=== PATIENT | female | born 1995 | race Caucasian/White ===

== ENCOUNTER 2018-02-11 21:29 | Emergency (ER) | payer BC, OTHER ==
[2018-02-11] MEDS ORDERED: FAMOTIDINE 20 MG TAB PO ONE (21:39)
[2018-02-11] MEDS ORDERED: predniSONE 20 MG TAB PO ONE (21:39)
[2018-02-11] MEDS ORDERED: diphenhydrAMINE 25 MG CAP PO ONE (21:39)
[2018-02-11] MEDS ORDERED: NS 1,000 ML IV ONE (21:39)
[2018-02-11] MEDS ORDERED: EPINEPHrine 1 MG/ML INJ IM ONE (21:39)
[2018-02-11] MEDS ORDERED: RANITIDINE 50 MG/2 ML VIAL IVP ONE (21:45)
[2018-02-11] MEDS ORDERED: IPRATROPIUM/ALBUTEROL 3 ML DEYVIAL IH ONE (21:56)
[2018-02-11 23:12] VITALS: BP 127/78
--- NOTE | 2018-02-11 23:16 | EDPHY ---
H & P Stated Complaint: allergic reaction Time Seen by Provider: 02/11/18 21:36 HPI/ROS: Chief complaint: Allergic reaction History of present illness: This is a 22-year-old female with history of anaphylactic reaction who presents to the emergency department concerned she is having another. She reports the sudden onset a red, itchy rash to her whole body. Her throat feels like it is swelling. She is having trouble breathing. She had a similar episode in September. She has been seen by primary care doctor and consumer credit counselor without any precipitating factors noted at this time. She denies other associated signs or symptoms. She does carry to epinephrine pens with her but has not administered them at this time. However, she has taken 25 mg of Benadryl orally. Review of systems: A 10 point review of systems was obtained and other than described above was negative - Personal History LMP (Females 10-55): Extended Cycle BCP/Inj Current Tetanus/Diphtheria Vaccine: Yes Current Tetanus Diphtheria and Acellular Pertussis (TDAP): Yes - Medical/Surgical History Hx Asthma: No Hx Chronic Respiratory Disease: No Hx Diabetes: No Hx Cardiac Disease: No Hx Renal Disease: No Hx Cirrhosis: No Hx Alcoholism: No Hx HIV/AIDS: No Hx Splenectomy or Spleen Trauma: No Other PMH: denies - Social History Smoking Status: Never smoked - Physical Exam Exam: General Appearance: Alert, nontoxic. Eyes: Pupils equal and round no pallor or injection. ENT, Mouth: Mucous membranes moist. No angioedema. Respiratory: There are no retractions, lungs are clear to auscultation. Cardiovascular: Regular rate and rhythm. Gastrointestinal: Abdomen is soft and non tender, no masses, bowel sounds normal. Neurological: Alert and oriented x4. Strength and sensation intact and symmetrical. Skin: Diffuse erythematous rash to the body. Musculoskeletal: Neck is supple non tender. Extremities are symmetrical, full range of motion. Psychiatric: Patient is oriented X 3, there is no agitation. Constitutional: Initial Vital Signs Temperature (C) 37.3 C 02/11/18 21:29 Heart Rate 122 H 02/11/18 21:29 Respiratory Rate 18 02/11/18 21:29 Blood Pressure 134/95 H 02/11/18 21:29 O2 Sat (%) 94 02/11/18 21:29 O2 Delivery Mode Room Air Allergies/Adverse Reactions: cefazolin Allergy (Verified 02/11/18 21:33) Penicillins Allergy (Verified 02/11/18 21:32) Home Medications: Medication Instructions Recorded Birthcontrol 02/11/18 predniSONE 40 mg PO DAILY 3 Days tab 02/11/18 Medical Decision Making ED Course/Re-evaluation: Patient is discussed with my secondary supervising physician Dr. Itz Johnson. Patient presents concerned she is having an anaphylactic reaction. She does have a diffuse rash. Airway is patent on my evaluation. She was given epinephrine 0.3 mg IM. She was given prednisone 60 mg orally. She was given normal saline IV, 25 mg of Benadryl IV, Zantac 50 mg IV and a nebulizer. She is observed for 2 hr with resolution of symptoms. She states she is feeling well and would like to be discharged. She will be discharged home on medications. She has 2 unexpired epinephrine pens on herself. Home care is discussed. She is asked to follow up with a primary care doctor for recheck. Return precautions are given. Patient voiced understanding and agreement with plan. Differential Diagnosis: Included but not limited to anaphylaxis, allergic reaction, contact dermatitis - Data Points Medications Given: Discontinued Medications Albuterol/Ipratropium (Duoneb) 3 ml IH EDNOW ONE Stop: 02/11/18 21:57 Last Admin: 02/11/18 22:15 Dose: 3 ml Diphenhydramine HCl (Benadryl) 25 mg PO EDNOW ONE Stop: 02/11/18 21:40 Last Admin: 02/11/18 22:22 Dose: Not Given Diphenhydramine HCl (Benadryl Injection) 25 mg IVP EDNOW ONE Stop: 02/11/18 21:46 Last Admin: 02/11/18 21:55 Dose: 25 mg Epinephrine HCl (Epinephrine) 0.3 mg IM EDNOW ONE Stop: 02/11/18 21:40 Last Admin: 02/11/18 21:40 Dose: 0.3 mg Famotidine (Pepcid) 40 mg PO EDNOW ONE Stop: 02/11/18 21:40 Last Admin: 02/11/18 22:22 Dose: Not Given Sodium Chloride (Ns) 1,000 mls @ 0 mls/hr IV ONCE ONE; Wide Open PRN Reason: Protocol Stop: 02/11/18 21:40 Last Admin: 02/11/18 21:40 Dose: 1,000 mls Prednisone (Prednisone) 60 mg PO EDNOW ONE Stop: 02/11/18 21:40 Last Admin: 02/11/18 21:40 Dose: 60 mg Ranitidine HCl (Zantac) 50 mg IVP EDNOW ONE Stop: 02/11/18 21:46 Last Admin: 02/11/18 21:53 Dose: 50 mg Departure - Departure Disposition: Home, Routine, Self-Care Clinical Impression: Allergic reaction Qualifiers: Encounter type: initial encounter Qualified Code(s): T78.40XA - Allergy, unspecified, initial encounter Condition: Good Instructions: Anaphylaxis (ED) Additional Instructions: Follow-up with a primary care doctor next week for recheck In terms of treatment see the following: -take prednisone daily until finished -take Benadryl 25 mg every 6 hr for the next 3-4 days -take Zantac 150 mg every 12 hr for the next 3-4 days Care you're epinephrine pens with you at all times, if symptoms return use the epinephrine pens and seek immediate medical care Referrals: NONE *PRIMARY CARE P,. [Primary Care Provider] - As per Instructions Komal Pitt MD [[facility] [place]] - As per Instructions Prescriptions: predniSONE 40 mg PO DAILY 3 Days tab
== END 2018-02-11 23:34 | disposition home or self-care (01) ==
DX: T78.2XXA Anaphylactic shock, unspecified, initial encounter (principal); L23.9 Allergic contact dermatitis, unspecified cause; E86.9 Volume depletion, unspecified
CPT/HCPCS: 96374; J0171; J1200; J2780; J7512

== ENCOUNTER 2018-04-01 17:05 | Emergency (ER) | payer BC, OTHER ==
[2018-04-01] MEDS ORDERED: methylPREDNISolone SOD SUCC 125 MG/2 ML VIAL IVP ONE (17:27)
[2018-04-01] MEDS ORDERED: EPINEPHrine 1 MG/ML INJ IM ONE (17:27)
[2018-04-01] MEDS ORDERED: NS 1,000 ML IV ONE (17:27)
--- NOTE | 2018-04-01 17:33 | EDPHY ---
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 She took Benadryl and ranitidine which she tolerated well and notes her symptoms continue however they have decreased slightly. No history of intubation. 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 Appears nontoxic appears anxious 2) HEAD: Normocephalic, atraumatic 3) HEENT: Pupils equal, round, reactive to light bilaterally. Sclera anicteric. Nasopharynx, oropharynx, clear, no lesions. Moist Mucous membranes. No tonsillar glossal enlargement Ears bilaterally with normal tympanic membranes. 4) NECK: Full range of motion, no meningeal signs. 5) LUNGS: Clear auscultation bilaterally, no wheezes, no rhonchi, no retractions. 6) HEART: Regular rate and rhythm, no murmur, no heave, no gallop. 7) ABDOMEN: No guarding, no rebound, no focal tenderness, negative McBurney's, negative Alston's, negative Rovsing's, negative peritoneal sign, 8) MUSCULOSKELETAL: Moving all extremities, no focal areas of tenderness, no obvious trauma. No peripheral edema or discoloration. 9) BACK: No CVA tenderness, no midline vertebral tenderness, no fluctuance, no step-off, no obvious trauma, no visual or palpable abnormality. 10) SKIN: Urticaria 11) Psychiatric: Patient is oriented X 3, there is no agitation. DIFFERENTIAL DIAGNOSIS: In no particular order including but not limited to anaphylaxis, urticaria, accidental exposure to allergens - Personal History LMP (Females 10-55): Extended Cycle BCP/Inj Current Tetanus Diphtheria and Acellular Pertussis (TDAP): Yes - Medical/Surgical History Hx Asthma: No Hx Chronic Respiratory Disease: No Hx Diabetes: No Hx Cardiac Disease: No Hx Renal Disease: No Hx Cirrhosis: No Hx Alcoholism: No Hx HIV/AIDS: No Hx Splenectomy or Spleen Trauma: No Other PMH: anaphlaxis - Social History Smoking Status: Never smoked Constitutional: Initial Vital Signs Temperature (C) 37.4 C 04/01/18 17:10 Heart Rate 99 04/01/18 17:10 Respiratory Rate 20 04/01/18 17:10 Blood Pressure 120/87 H 04/01/18 17:10 O2 Sat (%) 96 04/01/18 17:10 O2 Delivery Mode Room Air Allergies/Adverse Reactions: cefazolin Allergy (Verified 04/01/18 17:09) Penicillins Allergy (Verified 04/01/18 17:09) Home Medications: Medication Instructions Recorded Birthcontrol 02/11/18 Benadryl 04/01/18 EPINEPHrine [Epipen 0.3 MG] 0.3 mg IM ONCE #2 syr 04/01/18 Zantac 04/01/18 Medical Decision Making ED Course/Re-evaluation: 5:30 p.m.: Patient has already consumed H1 H2 blockers. Will administer further Solu-Medrol and epinephrine and re-evaluate. Explained the indications risks benefits of epinephrine and I think the benefits outweigh the risks. Patient consents. I believe her to have decision-making capacity. Care of patient under supervision of secondary supervising physician Dr Siegel with whom I discussed case. 5:55 p.m.: Re-evaluation after epinephrine and Solu-Medrol. Feeling "much better". She appears more comfortable. Will continue to observe the patient for period of time. We discussed recommendations and usage for her EpiPen the future which she has sufficient supply of. 7:30 p.m.: Re-evaluation feeling "totally better", would like to be discharged. Given my usual and customary allergic reaction precautions and instructions - Data Points Medications Given: Discontinued Medications Epinephrine HCl (Epinephrine) 0.3 mg IM EDNOW ONE Stop: 04/01/18 17:28 Last Admin: 04/01/18 17:29 Dose: 0.3 mg Sodium Chloride (Ns) 1,000 mls @ 0 mls/hr IV ONCE ONE; Wide Open PRN Reason: Protocol Stop: 04/01/18 17:28 Last Admin: 04/01/18 17:38 Dose: 1,000 mls Methylprednisolone Sodium Succinate (Solu-Medrol) 125 mg IVP EDNOW ONE Stop: 04/01/18 17:28 Last Admin: 04/01/18 17:31 Dose: 125 mg Departure - Departure Disposition: Home, Routine, Self-Care Clinical Impression: Allergic reaction Qualifiers: Encounter type: initial encounter Qualified Code(s): T78.40XA - Allergy, unspecified, initial encounter Condition: Good Instructions: Epinephrine (By injection), General Allergic Reaction (ED) Additional Instructions: Seek immediate medical attention if you develop shortness of breath, itching, difficulty swallowing or any other symptoms. Use your EpiPen at the 1st sign of an allergic reaction. Referrals: Maria D Cervantes MD [[facility] [place]] - 2-3 days, call for appt. Prescriptions: EPINEPHrine [Epipen 0.3 MG] 0.3 mg IM ONCE #2 syr
[2018-04-01 19:38] VITALS: BP 124/85
== END 2018-04-01 19:45 | disposition home or self-care (01) ==
DX: T78.40XA Allergy, unspecified, initial encounter (principal); E86.9 Volume depletion, unspecified